=== PATIENT | male | born 1935 | race Caucasian/White ===

== ENCOUNTER 2016-04-22 11:56 | Emergency (ER) | payer MEDICARE, OTHER ==
[~2016-04-22 11:56] MED LIST: ATARAX25 MG PO; CALTRATE 600 +1 EAC1 PO; CERTAGEN1 EACH PO; FEOSOL325 MG PO; LIPITOR40 MG PO; NORCO 5-325 TA1 EACH PO; PRILOSEC20 MG PO; TOPROL XL 25MG25 MG PO; VITAMIN D31000 UNI1 PO; XARELTO10 MG PO
[2016-04-22 15:48] LABS: BILIRUBIN NEGATIVE (NEGATIVE); BLOOD TRACE-INTACT Ery/uL (NEGATIVE); CLARITY CLEAR (CLEAR); COLOR YELLOW (YELLOW); GLUCOSE (U) 3+ mg/dL (NORMAL); KETONE (U) NEGATIVE (NEGATIVE); LEUKOCYTES NEGATIVE Leu/uL (NEGATIVE); NITRITE NEGATIVE (NEGATIVE); PROTEIN 1+ mg/dL (NEGATIVE)
[2016-04-22 15:58] LABS: URINARY RBC RARE; URINARY WBC RARE
== END 2016-04-22 16:46 | disposition home or self-care (01) ==
LOC: FER 11:56
PROVIDERS: Emergency Medicine
DX: S32.591A Other specified fracture of right pubis, initial encounter for closed fracture (principal); S09.90XA Unspecified injury of head, initial encounter; C34.90 Malignant neoplasm of unspecified part of unspecified bronchus or lung; Z79.82 Long term (current) use of aspirin; Z79.891 Long term (current) use of opiate analgesic; Z79.899 Other long term (current) drug therapy; W19.XXXA Unspecified fall, initial encounter; Y92.009 Unspecified place in unspecified non-institutional (private) residence as the place of occurrence of the external cause
CPT/HCPCS: 36415; 70450; 72170; 81001; 84484; 93005; J1170; J2405